=== PATIENT | male | born 1990 | race Caucasian/White ===

== ENCOUNTER 2017-06-08 23:54 | Emergency (ER) | payer SELFPAY ==
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
[2017-06-09 01:31] VITALS: BP 126/84
== END 2017-06-09 01:29 | disposition home or self-care (01) ==
LOC: ED 23:54
DX: Z77.21 Contact with and (suspected) exposure to potentially hazardous body fluids (principal)
CPT/HCPCS: 86703; 86706; 86803; 99282